=== PATIENT | female | born 1995 | race Hispanic/Latino ===

== ENCOUNTER → 2024-03-08 | Outpatient (CLI) | payer MEDICAID | END | disposition home or self-care (01) | LOC: RAH 13:55 | PROVIDERS: ATTEND Family Medicine | DX: G44.221 Chronic tension-type headache, intractable (principal) | CPT/HCPCS: 70450 ==

== ENCOUNTER → 2025-01-17 | Emergency (ER) | payer MEDICAID ==
[~2025-01-17] VITALS: Ht 160 cm; Wt 91.2 kg
[2025-01-17 21:57] VITALS: BP 145/94; PULSE 95; RESP 20; TEMP 98.5
[2025-01-17 22:36] LABS: APPEARANCE,URINE CLEAR (CLEAR); BILIRUBIN,URINE NEGATIVE (NEGATIVE); COLOR,URINE COLORLESS (YELLOW); GLUCOSE, URINE (UA) NEGATIVE (NEGATIVE); KETONES,URINE NEGATIVE (NEGATIVE); LEUKOCYTE ESTERASE ,URINE 25 Leu/uL (NEGATIVE); NITRATE,URINE NEGATIVE (NEGATIVE); OCCULT BLOOD,URINE NEGATIVE (NEGATIVE); PH,URINE 6.5 (5.0-8.0); PROTEIN,URINE NEGATIVE (NEGATIVE); UROBILINOGEN,URINE 0.2 mg/dL (0.2-1.0)
[2025-01-17 22:39] LABS: HCG,QUALITATIVE URINE NEGATIVE (NEGATIVE)
[2025-01-17 22:41] LABS: SQUAMOUS EPITHELIAL CELL,UR FEW /HPF (0-2)
[2025-01-17 22:53] LABS: AMPHET/METH SCREEN,URINE NEGATIVE (NEGATIVE); BARBITURATE SCREEN, URINE NEGATIVE (NEGATIVE); BENZODIAZEPINES SCREEN,URINE NEGATIVE (NEGATIVE); CANNABINOID SCREEN,URINE NEGATIVE (NEGATIVE); COCAINE SCREEN,URINE NEGATIVE (NEGATIVE); OPIATE SCREEN,URINE NEGATIVE (NEGATIVE); PHENCYCLIDINE SCREEN,URINE NEGATIVE (NEGATIVE)
[2025-01-17 22:55] LABS: BASOPHILS # (AUTO) 0.05 K/uL (0.00-0.20); BASOPHILS % (AUTO) 0.6 % (0.0-5.0); EOSINOPHILS % (AUTO) 2.2 % (0.0-8.0); HEMATOCRIT 34.7 % (36-48); IMMATURE GRANULOCYTE ABSOLUTE 0.03 K/uL (0-1); LYMPHOCYTES # (AUTO) 2.1 K/uL (1.0-4.8); LYMPHOCYTES % (AUTO) 22.8 % (21.0-51.0); MEAN CORPUSCULAR HEMOGLOBIN 24.5 pg (27.0-33.0); MEAN CORPUSCULAR HGB CONC 31.4 g/dL (32.0-36.0); MONOCYTES # (AUTO) 0.6 K/uL (0.1-1.0); MONOCYTES % (AUTO) 6.3 % (3.0-13.0); NEUTROPHILS # (AUTO) 6.2 K/uL (1.8-7.7); NEUTROPHILS % (AUTO) 67.8 % (40.0-77.0); PLATELET COUNT (AUTO) 352 K/uL (130-400); RED BLOOD CELL COUNT(AUTO) 4.45 MIL/uL (4.00-5.50); RED CELL DISTRIBUTION WIDTH 14.7 % (11.0-15.5); WHITE BLOOD COUNT (AUTO) 9.1 K/uL (4.8-10.8)
--- NOTE | 2025-01-17 23:03 | HMCIMG ---
CT HEAD/BRAIN W/O CONTRAST HISTORY: Seizure COMPARISON: None TECHNIQUE: Multiple sequential axial images of the head were obtained from the base of the skull through vertex. Patient was not given contrast through intravenous route. FINDINGS: The ventricles and extraventricular CSF spaces are nondilated for patient's age. There is no midline shift, mass effect or herniation. No acute intracranial bleed is seen. Visualized portion of the paranasal sinuses are grossly within normal limits. IMPRESSION: 1. No acute intracranial bleed is seen. CT was performed with one or more following dose reduction techniques: automated exposure control, adjustment of the mA and kv according to patient's size, or use of a iterative reconstruction technique.
[2025-01-17 23:04] LABS: CREATININE 0.8 mg/dL (0.5-1.0); POTASSIUM 3.9 mmol/L (3.5-5.1)
[2025-01-17 23:05] LABS: INR 1.01 (0.85-1.15); PROTHROMBIN TIME 10.7 SEC (9.6-11.6)
[2025-01-17 23:06] LABS: PARTIAL THROMBOPLASTIN TIME 25.5 SEC (26.3-35.5)
--- NOTE | 2025-01-18 01:00 | NUR ---
CALLED FOR PT TO MOVE TO BED; NO RESPONSE, PT NOT FOUND IN LOBBY.
--- NOTE | 2025-01-18 01:43 | ERN ---
General Chief Complaint: Seizure Stated Complaint: SIEZURE Time Seen by MD: 21:59 Time Seen by Midlevel: 21:59 Source: patient History of Present Illness Initial Comments 30-year-old female who presents to the emergency department due to seizure-like activity per . Has been reports symptoms initiated two days ago patient was seen at [facility] Thursday night. reports the left AMA due to patient not being on potline monitor. Patient denies any history of seizures. Reports blurry vision but denies any URBAN, chest pain, SOB, nausea, vomiting,or further associated symptoms. PMHx HTN, stroke Allergies: Coded Allergies: No Known Drug Allergies (Unverified Allergy, Unknown, 01/17/25) Past Medical History Past Medical History: Hypertension, Other Medical History Other: HX OF BLOOD CLOT; PRE-ECLAMPSIA Past Surgical History: None Female( History) LMP: Jan 02, 2025 ROS Dictation Constitutional: Negative for fever,chills, and weight loss Eyes: Positive for blurry vision Negative for injury, pain,redness, and discharge ENT: Negative for injury,pain or swelling Cardiovascular: Negative for chest pain, palpitations, and edema Respiratory: Negative for shortness of breath, cough, and wheezing, Abdomen/GI: Negative for abdominal pain, nausea, vomiting, diarrhea, and constipation Back: Negative for injury and pain : Negative for painful urination, bleeding or discharge MS/Extremity: Negative for injury and deformity Skin: Negative for rash, and discoloration Neuro: Negative for headache, weakness, numbness, tingling, and seizure Psych: Negative for suicide ideation, homicidal ideation, and hallucinations Physical Exam Physical Exam Dictation General: awake, alert, no acute distress Head/Face: Normocephalic, atraumatic Eyes: PERRL, EOMI, normal conjunctiva ENT: oral cavity clear, oral mucosa moist Neck: Supple, normal range of motion Cardiovascular: RRR, normal S1/S2 Respiratory: CTAB, no respiratory distress Abdomen: Soft, non-tender, non-distended, no guarding or rebound. Skin: Warm, dry, normal turgor, no rash MS/Extremity: Pulses equal, no cyanosis, neurovascular intact, FROM Neuro: COAx4, GCS 15, strength 5/5, CN 2-12 intact, normal cerebellar exam, n ormal gait Psych: Normal behavior, mood, and affect normal Results Laboratory and Microbiology Lab and Micro Result Laboratory Tests Test 01/17/25 22:14 01/17/25 22:36 Urine Color COLORLESS (YELLOW) Urine Appearance CLEAR (CLEAR) Urine pH 6.5 (5.0-8.0) Urine Specific [place] 1.001 (1.001-1.031) Urine Protein NEGATIVE mg/dL (NEGATIVE) Urine Glucose (UA) NEGATIVE mg/dL (NEGATIVE) Urine Ketones NEGATIVE mg/dL (NEGATIVE) Urine Occult Blood NEGATIVE (NEGATIVE) Urine Nitrate NEGATIVE (NEGATIVE) Urine Bilirubin NEGATIVE mg/dL (NEGATIVE) Urine Urobilinogen 0.2 mg/dL (0.2-1.0) Urine Leukocyte Esterase 25 Wade/uL (NEGATIVE) H Urine RBC 2-5 /HPF (0-1) H Urine WBC 6-10 /HPF (0-1) H Urine Squamous Epithelial Cells FEW /HPF (0-2) Urine Bacteria None /HPF (None Seen) Urine HCG, Qualitative NEGATIVE (NEGATIVE) Urine Opiates Screen NEGATIVE (NEGATIVE) Urine Barbiturates Screen NEGATIVE (NEGATIVE) Urine Phencyclidine Screen NEGATIVE (NEGATIVE) Urine Amphetamines Screen NEGATIVE (NEGATIVE) Urine Benzodiazepines Screen NEGATIVE (NEGATIVE) Urine Cocaine Screen NEGATIVE (NEGATIVE) Urine Marijuana (THC) Screen NEGATIVE (NEGATIVE) White Blood Count 9.1 K/uL (4.8-10.8) Red Blood Count 4.45 MIL/uL (4.00-5.50) Hemoglobin 10.9 g/dL (12.0-16.0) L Hematocrit 34.7 % (36-48) L Mean Corpuscular Volume 78.0 fL (79-99) L Mean Corpuscular Hemoglobin 24.5 pg (27.0-33.0) L Mean Corpuscular Hemoglobin Concent 31.4 g/dL (32.0-36.0) L Red Cell Distribution Width 14.7 % (11.0-15.5) Platelet Count 352 K/uL (130-400) Mean Platelet Volume 9.6 fL (7.5-10.5) Immature Granulocyte % (Auto) 0.3 % (0-1) Neutrophils (%) (Auto) 67.8 % (40.0-77.0) Lymphocytes (%) (Auto) 22.8 % (21.0-51.0) Monocytes (%) (Auto) 6.3 % (3.0-13.0) Eosinophils (%) (Auto) 2.2 % (0.0-8.0) Basophils (%) (Auto) 0.6 % (0.0-5.0) Neutrophils # (Auto) 6.2 K/uL (1.8-7.7) Lymphocytes # (Auto) 2.1 K/uL (1.0-4.8) Monocytes # (Auto) 0.6 K/uL (0.1-1.0) Eosinophils # (Auto) 0.20 K/uL (0.00-0.70) Basophils # (Auto) 0.05 K/uL (0.00-0.20) Absolute Immature Granulocyte (auto 0.03 K/uL (0-1) Nucleated Red Blood Cells 0.0 % (0.0-0.19) Red Blood Cell Morphology See comments Prothrombin Time 10.7 SEC (9.6-11.6) Prothromb Time International Ratio 1.01 (0.85-1.15) Activated Partial Thromboplast Time 25.5 SEC (26.3-35.5) L Sodium Level 139 mmol/L (136-145) Potassium Level 3.9 mmol/L (3.5-5.1) Chloride Level 102 mmol/L (101-111) Carbon Dioxide Level 30 mmol/L (21-32) Blood Urea Nitrogen 7 mg/dL (7-18) Creatinine 0.8 mg/dL (0.5-1.0) Glomerular Filtration Rate Calc 100 mL/min (>90) Random Glucose 102 mg/dL (70-105) Total Calcium 9.8 mg/dL (8.5-10.1) Labs Reviewed?: Yes EKG/XRAY/US/CT/MRI CT Scan Comment REASON: Seizure like activity ORDERING PHYSICIAN: SUSAN MEHTA PROCEDURE: HEAD WO - CT HEAD/BRAIN W/O CONTRAST CT HEAD/BRAIN W/O CONTRAST HISTORY: Seizure COMPARISON: None TECHNIQUE: Multiple sequential axial images of the head were obtained from the base of the skull through vertex. Patient was not given contrast through intravenous route. FINDINGS: The ventricles and extraventricular CSF spaces are nondilated for patient's age. There is no midline shift, mass effect or herniation. No acute intracranial bleed is seen. Visualized portion of the paranasal sinuses are grossly within normal limits. IMPRESSION: 1. No acute intracranial bleed is seen. CT was performed with one or more following dose reduction techniques: automated exposure control, adjustment of the mA and kv according to patient's size, or use of a iterative reconstruction technique. DICTATED BY: EDWIN FORREST MD DATE: 01/17/252300 MDM MDM: Differential diagnosis: Intracerebral bleed, seizure, stroke Rationale: 30-year-old female who presents to the emergency department due to seizure-like activity per . Has been reports symptoms initiated two days ago patient was seen at [facility] Thursday. reports the left AMA due to patient not being on potline monitor. Patient denies any history of seizures. Reports blurry vision but denies any URBAN, chest pain, SOB, nausea, vomiting,or further associated symptoms. PMHx HTN, stroke Per physical examination patient is in no acute distress, no neurological deficits noted, NIH score of 0. Labs obtained indicating anemia with hemoglobin of 10.9, otherwise nonspecific. CT head indicates no acute intracranial bleeds seen. Patient eloped. There are no social concerns with this patient. I independently interpreted the test that were performed, results were reviewed by me and considered findings on radiology if ordered. Medical management and examination interpretation discussions were had by me with other qualified healthcare professionals as indicated for the patient's care. ED Course Orders Procedure Category Date Status Time Cbc With Differential LAB 01/17/25 Complete 21:59 Basic Metabolic Panel LAB 01/17/25 Complete 21:59 Urinalysis LAB 01/17/25 Complete W/Microscopic 21:59 ,Urine Test LAB 01/17/25 Complete 21:59 Drug Screen Urine LAB 01/17/25 Complete 21:59 Pt And Ptt LAB 01/17/25 Complete 21:59 Ct Head/Brain W/O CT 01/17/25 Resulted Contrast 21:59 Culture Urine LAURI 01/17/25 In Process 22:42 Vital Signs Date Time Temp Pulse Resp B/P (MAP) Pulse Ox O2 Delivery O2 Flow Rate FiO2 01/17/25 21:57 98.4 95 20 145/94 96 Room Air DX & DISP Disposition: Other(Comment) (ELOPED) Departure Condition: Stable Referrals: LEONILA JORDAN DO (PCP) I performed the substantive portion of the visit. I have reviewed and personall y made and approve the management plan that is documented in the notes by myself or the ALTAF. I acknowledge full responsibility for the patient's management plan. SUSAN MEHTA Jan 18, 2025 01:43
--- NOTE | 2025-01-18 01:46 | NUR ---
CALLED FOR PT IN LOBBY; NO RESPONSE; PT NOT FOUND IN LOBBY.
== END ==
LOC: EDH 20:55
DX: R56.9 Unspecified convulsions (principal); I10 Essential (primary) hypertension; Z86.73 Personal history of transient ischemic attack (TIA), and cerebral infarction without residual deficits; Z87.59 Personal history of other complications of pregnancy, childbirth and the puerperium
CPT/HCPCS: 36415; 70450; 80048; 80305; 81001; 81025; 85025; 85610; 85730; 87086; 99284